=== PATIENT | male | born 1970 | race Caucasian/White ===

== ENCOUNTER → 2017-01-27 | Outpatient (CLI) | payer BC ==
--- NOTE | 2017-01-28 08:36 | XR ---
EXAMINATION TYPE: XR sternum DATE OF EXAM: 01/27/2017 10:00 AM COMPARISON: NONE HISTORY: Midsternal pain TECHNIQUE: 2 view submitted FINDINGS: Technique is somewhat limited. Visualized portions of the sternum. No definite fracture or destructive change. There is some thickening along the posterior margin of the sternum which could re late a history of previous fracture. IMPRESSION: 1. No definite acute process. Given the limitation of the exam, if symptoms persist consider CT scan.
== END ==
LOC: RADXRYALE 09:46
PROVIDERS: ATTEND Physician Assistant Medical
DX: R07.9 Chest pain, unspecified (principal); S23.428A Other sprain of sternum, initial encounter
CPT/HCPCS: 71120

== ENCOUNTER → 2017-07-10 | Outpatient (CLI) | payer BC ==
--- NOTE | 2017-07-10 11:27 | XR ---
EXAMINATION TYPE: XR tibia fibula LT , 2 VIEWS DATE OF EXAM ORDERED: 07/10/2017 HISTORY: T148 puncture wound. COMPARISON: None. FINDINGS: No fracture, dislocation or radiopaque foreign body is identified. IMPRESSION: NO ACUTE OSSEOUS LESION.
== END | disposition home or self-care (01) ==
LOC: RADXRYALE 10:56
PROVIDERS: ATTEND Physician Assistant Medical
DX: T14.8 Other injury of unspecified body region (principal)

== ENCOUNTER → 2024-04-14 | Outpatient (CLI) | payer OTHER ==
--- NOTE | 2024-04-14 10:40 | CA ---
Exercise Stress Test Report Name: Betito Garvey Exam Date: 04/14/2024 09:36 Exam Location: [place] Stress Ht (in): 68 Wt (lb): 200 BSA: 2.04 Ordering Phys: Charles Mena DO Referring Phys: Tiffanie Llamas Technologist: ERIC Age: 53 Gender: M : 1970 Procedure CPT: Indications: R94.31 ABNORMAL EKG ICD-10 Codes: Patient History: HTN, HYPERCHOLESTEROLEMIA, FAMILY HX OF HEART DISEASE Medications: LISINOPRIL, ATORVASTATIN Meds past 24 hrs: Pretest Chest Pain: STRESS TEST Pete Protocol Exercise Duration (min:sec): 10:[address] Depressions (mm): Angina Score: Zee Score: Resting HR (bpm): 71 Peak HR (bpm): 146 Resting BP (mmHg): 137 / 96 Peak BP (mmHg): / 77 MPHR: 167 Target HR: 142 % MPHR: 87 METS: 12.1 Total Dose: Peak Dose: Atropine: Double Product: BP Response: Stress Termination: MAX EXERTION/TARGET HR Stress Symptoms: NO SYMPTOMS Stress Summary: ECG ANALYSIS Resting ECG: Normal sinus rhythm normal axis normal intervals Stress ECG: Patient exercised on Pete protocol for 10 minutes achieving 11 mets85% of predicted maximal heart rate without chest pain or diagnostic ST segment depression CONCLUSIONS Excellent exercise tolerance Negative stress test by EKG criteria Dr. Stanley Dean MD (Electronically Signed) Final Date: 14 April 2024 10:39
== END | disposition home or self-care (01) ==
LOC: RADNMMAIN 09:18
PROVIDERS: ATTEND Family Medicine
DX: R94.31 Abnormal electrocardiogram [ECG] [EKG] (principal); I10 Essential (primary) hypertension; E78.2 Mixed hyperlipidemia; Z82.49 Family history of ischemic heart disease and other diseases of the circulatory system
CPT/HCPCS: 93017